=== PATIENT | female | born 1950 | race Caucasian/White ===

== ENCOUNTER → 2019-06-12 | Outpatient (CLI) | payer SELFPAY ==
[2018-10-17 09:56] VITALS: BMI 18.8
--- NOTE | 2019-06-12 15:58 | CT_ITS ---
STUDY: CT CHEST WITHOUT CONTRAST REASON FOR EXAM: Female, 68 years old. Cough RADIATION DOSAGE (If Supplied By Facility): CTDIvol = ( 6.15 ) mGy, DLP = ( 241.42 ) mGycm TECHNIQUE: Transaxial imaging was performed without the administration of intravenous contrast material. Individualized dose optimization techniques were used for this CT. COMPARISON: None. FINDINGS: Parenchymal density in the right upper lobe measuring up to 1.3 x 1.4 x 3.4 cm best visualized on axial image 56. A density is noted in the lateral aspect of the right middle lobe measuring 2.2 x 3.4 x 4.4 cm best visualized on axial image 116. Significant consolidation in the medial aspect of the right upper lobe anteriorly measuring 4.1 x 1.7 x 4.4 cm. 8 mm nodule in the right middle lobe inferiorly at the level of the diaphragm best visualized on image 117. Left lingular density measuring 1.4 x 1.2 x 0.7 cm. There are 3 foci of pleural-based parenchymal densities in the right lower lobe posteriorly measuring up to 1.8 x 0.8 cm in cross-section. There are bronchiectasis in the bilateral lower lung, and to a lesser extent in the mid to upper lung. Patchy airspace process in the left lower lobe best visualized on image 64 to 81. No definite pleural effusion. No significant pleural effusion. There are calcifications of the coronary arteries. There are multiple small lymph nodes within the mediastinum, which are normal in size and morphology most compatible with reactive lymph hyperplasia. Normal hilar regions. Normal unenhanced pulmonary arteries. Normal caliber of the aorta arch and descending thoracic aorta. There are multi-level degenerative changes of the thoracic spine. There is no demonstrated abnormality of the visualized upper abdomen. Small hiatal hernia. CT/Chest without Contrast IMPRESSION: Multifocal parenchymal densities in the lung parenchyma, more involved on the right side, and correlation with PET CT scan is recommended to exclude possible neoplastic process. Patchy airspace process in the left lower lobe concerning for pneumonia best visualized on image 64-81. There are bronchiectasis in the bilateral lower lung, and to a lesser extent in the mid to upper lung. Small hiatal hernia. Electronically Signed: Jesus Alberto Butterfield MD at 9:29 EDT Tel [phone], Service support ,
== END | disposition home or self-care (01) ==
LOC: CT 15:48
PROVIDERS: Family Provider Nurse Practitioner Family; PCP Nurse Practitioner Family; Referring Provider Internal Medicine Pulmonary Disease; Visit Provider Internal Medicine Pulmonary Disease
DX: R91.8 Other nonspecific abnormal finding of lung field (principal)
CPT/HCPCS: 71250

== ENCOUNTER → 2019-06-27 17:21 | Outpatient (CLI) | payer SELFPAY ==
[2018-10-17 09:56] VITALS: BMI 18.8
== END ==
PROVIDERS: Family Provider Nurse Practitioner Family; PCP Nurse Practitioner Family; Referring Provider Internal Medicine Pulmonary Disease; Visit Provider Internal Medicine Pulmonary Disease
DX: R91.1 Solitary pulmonary nodule (principal); J44.9 Chronic obstructive pulmonary disease, unspecified
CPT/HCPCS: 87015; 87070; 87116; 87205; 87206

== ENCOUNTER → 2019-07-12 12:35 | Outpatient (CLI) | payer SELFPAY ==
[2018-10-17 09:56] VITALS: BMI 18.8
== END ==
PROVIDERS: Family Provider Nurse Practitioner Family; PCP Nurse Practitioner Family; Referring Provider Internal Medicine Pulmonary Disease; Visit Provider Internal Medicine Pulmonary Disease
DX: R91.1 Solitary pulmonary nodule (principal); J44.9 Chronic obstructive pulmonary disease, unspecified
CPT/HCPCS: 87015; 87077; 87101; 87116; 87206

== ENCOUNTER → 2019-07-19 13:56 | Outpatient (CLI) | payer SELFPAY ==
[2018-10-17 09:56] VITALS: BMI 18.8
== END ==
PROVIDERS: Family Provider Nurse Practitioner Family; PCP Nurse Practitioner Family; Referring Provider Internal Medicine Pulmonary Disease; Visit Provider Internal Medicine Pulmonary Disease
DX: R91.1 Solitary pulmonary nodule (principal); J44.9 Chronic obstructive pulmonary disease, unspecified
CPT/HCPCS: 87015; 87116; 87206

== ENCOUNTER → 2019-11-08 13:15 | Outpatient (CLI) | payer SELFPAY ==
[2018-10-17 09:56] VITALS: BMI 18.8
--- NOTE | 2019-11-08 14:17 | CT_ITS ---
STUDY: CT CHEST WITHOUT CONTRAST REASON FOR EXAM: Female, 69 years old. Lung nodule, chronic productive cough x years, getting worse. Hx hypertension. RADIATION DOSAGE (If Supplied By Facility): CTDIvol = ( 5.89 ) mGy, DLP = ( 232.37 ) mGycm TECHNIQUE: Transaxial imaging was performed without the administration of intravenous contrast material. Multiplanar coronal and sagittal images were reformatted. Individualized dose optimization techniques were used for this CT. COMPARISON: 06/12/2019 FINDINGS: The nodule in the right upper lobe noted on the prior study has increased in size and density with increasing amount of reticulation extending to the lateral and posterior (major fissure) pleural surface prominent bronchiectasis involving all pulmonary lobes with peribronchial opacity of the right middle lobe, right lower lobe and left lower lobe overall similar since the prior study. 8 mm nodule in the lateral right lower lobe on image 226 of series 4 is stable. No pleural effusion. Normal heart and pericardium. There are calcifications of the coronary arteries. Mildly enlarged mediastinal lymph nodes without dominant mass overall similar although not well seen, given lack of IV contrast. No hilar adenopathy. Normal unenhanced pulmonary arteries. There is ectasia of the ascending thoracic aorta with axial diameter measuring up to 3.6 cm. There is mild atherosclerosis. Sclerotic lesion of the upper sternum on sagittal image 60 measuring 1.5 cm is new since the prior study. There is no demonstrated abnormality of the visualized upper abdomen. CT/Chest without Contrast IMPRESSION: 1. Increasing size and density of right upper lobe nodule extremely worrisome for neoplasm. PET scan and/or tissue sampling recommended. New 1.5 cm sclerotic lesion of the sternum worrisome for metastasis given interval change. 2. Significant multilobar nearly cystic bronchiectasis with peribronchial consolidation most typically infectious, overall similar. Electronically Signed: Jesus Cancino MD ([place]) at 20:51 EST , Service support ,
== END ==
PROVIDERS: Family Provider Nurse Practitioner Family; PCP Nurse Practitioner Family; Referring Provider Internal Medicine Pulmonary Disease; Visit Provider Internal Medicine Pulmonary Disease
DX: R91.1 Solitary pulmonary nodule (principal)
CPT/HCPCS: 71250

== ENCOUNTER 2019-11-13 11:48 | Day surgery (SDC) | payer SELFPAY ==
[2018-10-17 09:56] VITALS: BMI 18.8
[2019-11-13] VITALS (10 sets, daily range): BP systolic 123–168; BP diastolic 65–92; PULSE 72–85; RESP 16–22; TEMP 37.1–37.4; O2SAT 97–100; BMI 15.7
[2019-11-13] MEDS: Lactated Ringers 1,000 ML 100 ML IV ×2 (12:19→13:51)
--- NOTE | 2019-11-13 14:30 | FLU_PTH ---
PATIENT: ASHLEY ALVARADO LOC: [facility] U#:[id number] AGE/SX: 69/F ROOM: RE11/13/[address]: Dr. Shoaib Suh MD : 1950 BED: DIS: 11/13/2019 SPEC #: [id number] RECD: 11/13/19 15:00 STATUS: KENYON PAULETTE #: [id number] DEIRDRE: 11/13/19 14:[address]: Shoaib Suh V DEPT: CYTOLOGY RECD BY: Chapo Roberts ENTERED: 11/14/19 08:32 SP TYPE: Fluid OTHR DR: Ang Lund, SURGICAL TECHNOLOGIST-C Tissues: A - Bronchus of right upper lobe B - Bronchus, NOS Procedures: Special Stain Group II Surgery Specimen Level IV Cytospin Fluid HEADER OPERATION: Bronchoscopy (MAC) PRE-OP DIAGNOSIS: Lung nodule, bronchiectasis, abnormal weight loss TISSUE SUBMITTED: A - BAL RUL #1 for cytology, B - BAL RUL #2 for cytology DIAGNOSIS CYTOLOGY A. Bronchioalveolar lavage, right upper lobe #1 (cytospin and cell block): Marked acute inflammation. Negative for malignant cells. B. Bronchioalveolar lavage, right upper lobe #2 (cytospin and cell block): Marked acute inflammation. Negative for malignant cells. AM:jose 11/15/19 CYTOLOGY STUDY Slides are reviewed. CYTOLOGY GROSS A - Received is 30 ml of yellow mucoid material labeled with the patient's name and and designated per the requisition as BAL RUL #1. Submitted for cytology preparation including cell block. B - Received is 30 ml of yellow mucoid material labeled with the patient's name and and designated per the requisition as BAL RUL #2. Submitted for cytology preparation including cell block. / jose 11/14/19 TC:2 CPT: 44688 x2, 36979 x2
--- NOTE | 2019-11-13 14:40 | OP.BRONCH_ITS ---
Patient Name: Sindy Pelletier Procedure Date: 11/13/2019 1:24 PM Date of : 1950 Age: 69 Procedure: Bronchoscopy Indications: Bilateral atelectasis Providers: Shoaib Suh MD Referring MD: Shoaib Suh MD Medicines: Midazolam 4.5 mg IV, Morphine sulfate 5 mg IV, Lidocaine 2% applied to cords 12 mL Complications: No immediate complications Procedure: Pre-Anesthesia Assessment: - Pre-procedure physical examination revealed no contraindications to sedation. - A History and Physical has been performed. The patient's medications, allergies and sensitivities have been reviewed. - The anesthesia plan was to use moderate sedation/analgesia. - The heart rate, respiratory rate, oxygen saturations, blood pressure, adequacy of pulmonary ventilation, and response to care were monitored throughout the procedure. After I obtained informed consent, the scope was passed under direct vision. Throughout the procedure, the patient's blood pressure, pulse, and oxygen saturations were monitored continuously. The bronchoscope was introduced through the mouth and advanced to the tracheobronchial tree of both lungs. The patient tolerated the procedure well. The total duration of the procedure was 0 hours and 20 minutes. Moderate Sedation: Moderate (conscious) sedation was personally administered by the endoscopist. The following parameters were monitored: oxygen saturation, heart rate, blood pressure, and response to care. Findings: Bronchoalveolar lavage was performed in the RUL posterior segment (B2) of the lung and sent for cell count, bacterial culture, viral smears & culture, fungal & AFB analysis and cytology for immunocompromised host protocol, routine cytology, AFB analysis & culture and fungal analysis. 80 mL of fluid were instilled. 30 mL were returned. The return was cloudy. Mucous plugs were present in the return fluid. Multiple specimens were obtained, and each sent for analysis. Bronchoalveolar lavage was performed [Site] [Analysis]. [Instilled volume]. [return volume]. [return description]. [Plugs present]. [Multi samples]. Impression: - Bilateral atelectasis - Bronchoalveolar lavage was performed. - Bronchoalveolar lavage was performed. - call for 2 tsp blood or chest pain or sob Procedure Code(s): --- Professional --- 11110, Bronchoscopy, rigid or flexible, including fluoroscopic guidance, when performed; with bronchial alveolar lavage CPT copyright 2017 [employer]. All rights reserved. The codes documented in this report are preliminary and upon produce manager review may be revised to meet current compliance requirements. MD Shoaib Pisano MD 11/13/2019 2:39:29 PM This report has been signed electronically. Number of Addenda: 0 Note Initiated On: 11/13/2019 1:24 PM
[2019-11-13 15:02] LABS: Cytology, Body Fluid / CSF SEE PATHOLOGY REPORT
[2019-11-13 15:04] LABS: Cytology, Body Fluid / CSF SEE PATHOLOGY REPORT
== END 2019-11-13 16:10 | disposition home or self-care (01) ==
LOC: EN 11:49 → AC 11:51
PROVIDERS: PCP Nurse Practitioner Family; Referring Provider Internal Medicine Pulmonary Disease; Visit Provider Internal Medicine Pulmonary Disease
PROC: 0BJ08ZZ Inspection of Tracheobronchial Tree, Via Natural or Artificial Opening Endoscopic (ICD-10-PCS; CPT 31622; principal; 2019-11-13 12:15)
DX: R91.8 Other nonspecific abnormal finding of lung field (principal); J47.9 Bronchiectasis, uncomplicated; M19.90 Unspecified osteoarthritis, unspecified site; M81.0 Age-related osteoporosis without current pathological fracture; R01.1 Cardiac murmur, unspecified; I10 Essential (primary) hypertension; K21.9 Gastro-esophageal reflux disease without esophagitis; Z86.2 Personal history of diseases of the blood and blood-forming organs and certain disorders involving the immune mechanism; Z79.899 Other long term (current) drug therapy
CPT/HCPCS: 31624; 87015; 87070; 87077; 87101; 87116; 87186; 87205; 87206; 88108; 88305; 88313; 99152; 99153; J7120